=== PATIENT | male | born 1995 | race Caucasian/White ===

== ENCOUNTER 2018-02-22 10:42 | Inpatient (IN) | payer MEDICAID, OTHER ==
[~2018-02-22] VITALS: Ht 190.5 cm; Wt 90.4 kg
[~2018-02-22 10:42] MED LIST: AMOX500C2 PO; TETR250C3 PO
[2018-02-22] MEDS ORDERED: CLIN300C11 PO (11:32)
[2018-02-22] MEDS ORDERED: fentaNYL INJECTION 100 MCG/2 ML AMP ONE ×2 (11:43→14:22)
[2018-02-22] MEDS ORDERED: NS IV 1000 ML 1,000 ML ONE ×2 (11:43→14:20)
[2018-02-22] MEDS ORDERED: DEXAMETHASONE 10 MG/ML (DECADRON) 1 ML VIAL ONE (11:44)
[2018-02-22] MEDS ORDERED: NS 1000 ML IV BAG IV ONE (12:00)
[2018-02-22] MEDS ORDERED: fentaNYL INJECTION 100 MCG/2 ML AMP IVP ONE (12:00)
[2018-02-22] MEDS ORDERED: DEXAMETHASONE PF 10 MG/ML (DECADRON) VIAL IV ONE (12:00)
[2018-02-22] MEDS ORDERED: AMPICILLIN/SULBACTAM INJECTION 3 GM in NS (IVPB) 100 ML IV ONE (12:00)
--- NOTE | 2018-02-22 12:13 | ED EENT ---
History of Present Illness General Chief Complaint: Oral/Throat Problems Stated Complaint: SORE THROAT,DISCHARGED FROM ANOTHER FACILITY YEST Nursing Triage Note: PT AMBULATES TO ROOM 9 PT STATES HAS PERITONSILAR ABCESS L SIDE, PT WAS SENT HOME YESTERDAY FROM [facility]. CONT TO HAVE SORE THROAT Source: patient, family Exam Limitations: no limitations History of Present Illness Date Seen by Provider: February 22, 2018 Time Seen by Provider: 12:05 Initial Comments This 22-year-old white male presents with a left peritonsillar abscess. Patient developed the abscess over the last several days and was hospitalized while he was working out of town in [place], [place]. Patient received 20 mg Decadron and 3 g of Unasyn IV. There was interval improvement until he was discharged yesterday afternoon and placed on clindamycin 300 mg every 8 hours. The patient's symptoms have progressed since his discharge. He is able to handle his secretions. He has no difficulty with his airway. Allergies and Home Medications Allergies Coded Allergies: No Known Drug Allergies (Unverified , 06/05/10) Patient Home Medication List Home Medication List Reviewed: Yes Review of Systems Constitutional: No chills, No fever Eyes: Denies Blurred Vision Ears: Denies Dizziness Nose: denies congestion Mouth: swelling Throat: swelling (of the oropharynx on the left); denies muffled; painful swallowing; denies difficulty with fluids Respiratory: No cough Cardiovascular: No chest pain Gastrointestinal: No abdominal pain, No diarrhea, No nausea, No vomiting Musculoskeletal: No back pain Skin: no symptoms reported Past Eovkjeg-Nrsnjo-Keteqa Hx Past Med/Social Hx: Reviewed Nursing Past Med/Soc Hx Patient Social History Alcohol Use: Denies Use Recreational Drug Use: No Smoking Status: Never a Smoker Recent Foreign Travel: No Contact w/Someone Who Travel: No Recent Infectious Disease Expo: No Recent Hopitalizations: Yes (peritonsilar abcess yesterday) Physical Abuse: No Sexual Abuse: No Past Medical History Surgeries: No Nursing Suicide Risk Score: 0 Physical Exam Vital Signs Vital Signs - First Documented 02/22/18 11:00 Temp 97.7 Pulse 88 Resp 18 B/P (MAP) 130/64 (86) Pulse Ox 99 General Appearance: WD/WN, mild distress Eyes: bilateral eye normal inspection Ears: bilateral ear auricle normal Nose: normal inspection Mouth/Throat: tonsillar swelling (there is a left peritonsillar abscess present.) Neck: non-tender, full range of motion, supple Cardiovascular: regular rate, rhythm Respiratory: chest non-tender, lungs clear, normal breath sounds, no respiratory distress Gastrointestinal: normal bowel sounds, non tender, soft 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, no motor/sensory deficits, alert, normal mood/affect Skin: normal color, warm/dry Progress/Results/Core Measures Results/Orders Lab Results Laboratory Tests Test 02/22/18 11:27 Range/Units White Blood Count 11.0 4.3-11.0 10^3/uL Red Blood Count 5.10 4.35-5.85 10^6/uL Hemoglobin 15.2 13.3-17.7 G/DL Hematocrit 45 40-54 % Mean Corpuscular Volume 89 80-99 FL Mean Corpuscular Hemoglobin 30 25-34 PG Mean Corpuscular Hemoglobin Concent 34 32-36 G/DL Red Cell Distribution Width 12.9 10.0-14.5 % Platelet Count 254 130-400 10^3/uL Mean Platelet Volume 10.9 H 7.4-10.4 FL Neutrophils (%) (Auto) 73 42-75 % Lymphocytes (%) (Auto) 14 12-44 % Monocytes (%) (Auto) 12 0-12 % Eosinophils (%) (Auto) 1 0-10 % Basophils (%) (Auto) 1 0-10 % Neutrophils # (Auto) 8.1 H 1.8-7.8 X 10^3 Lymphocytes # (Auto) 1.5 1.0-4.0 X 10^3 Monocytes # (Auto) 1.4 H 0.0-1.0 X 10^3 Eosinophils # (Auto) 0.1 0.0-0.3 10^3/uL Basophils # (Auto) 0.1 0.0-0.1 10^3/uL Sodium Level 141 135-145 MMOL/L Potassium Level 4.2 3.6-5.0 MMOL/L Chloride Level 104 98-107 MMOL/L Carbon Dioxide Level 26 21-32 MMOL/L Anion Gap 11 5-14 MMOL/L Blood Urea Nitrogen 14 7-18 MG/DL Creatinine 0.90 0.60-1.30 MG/DL Estimat Glomerular Filtration Rate > 60 BUN/Creatinine Ratio 16 Glucose Level 87 70-105 MG/DL Calcium Level 9.8 8.5-10.1 MG/DL Total Bilirubin 0.7 0.1-1.0 MG/DL Aspartate Amino Transf (AST/SGOT) 50 H 5-34 U/L Alanine Aminotransferase (ALT/SGPT) 78 H 0-55 U/L Alkaline Phosphatase 93 40-136 U/L Total Protein 8.1 6.4-8.2 GM/DL Albumin 4.5 3.2-4.5 GM/DL My Orders Orders - DEIDRE ALDRIDGE MD Fentanyl Injection (Sublimaze Injection (02/22/18 11:43) Ns Iv 1000 Ml (Sodium Chloride 0.9%) (02/22/18 11:43) Dexamethasone Injection (Decadron Inject (02/22/18 11:44) Ns Iv 1000 Ml (Sodium Chloride 0.9%) (02/22/18 12:00) Ampicillin/Sulbactam Injection (Unasyn 3 (02/22/18 12:00) Fentanyl Injection (Sublimaze Injection (02/22/18 12:00) Dexamethasone Pf Injection (Decadron Pf (02/22/18 12:00) Cbc With Automated Diff (02/22/18 11:58) Comprehensive Metabolic Panel (02/22/18 11:58) Blood Culture (02/22/18 11:58) Lactic Acid Analyzer (02/22/18 11:58) Lidocaine/Epi 2% 1:100,000 (Xylocaine/Ep (02/22/18 12:32) Medications Given in ED Current Medications Medications Dose Ordered Sig/Lenore Route Start Time Stop Time Status Last Admin Dose Admin Ampicillin Sodium/ Sulbactam Sodium 3 gm/Sodium Chloride 100 ml @ 200 mls/hr ONCE ONCE IV 02/22/18 12:00 02/22/18 12:29 DC 02/22/18 11:58 200 MLS/HR Dexamethasone Sodium Phosphate 10 mg ONCE ONCE IV 02/22/18 12:00 02/22/18 12:01 DC 02/22/18 11:57 10 MG Fentanyl Citrate 75 mcg ONCE ONCE IVP 02/22/18 12:00 02/22/18 12:01 DC 02/22/18 11:58 75 MCG Sodium Chloride 1,000 ml ONCE ONCE IV 02/22/18 12:00 02/22/18 12:01 DC 02/22/18 11:57 1,000 ML Vital Signs/I&O 02/22/18 11:00 Temp 97.7 Pulse 88 Resp 18 B/P (MAP) 130/64 (86) Pulse Ox 99 Blood Pressure Mean: 86 Progress Progress Note : Time: 12:08 Progress Note I mistakenly call Dr. Woods. He had Gigi Guzman call me. She was kind enough to come to the emergency department to evaluate the patient. I gave the patient 10 mg of Decadron IV and 3 g of Unasyn IV. Patient received 75 g of fentanyl IV and a liter of normal saline. And the Thomas presented to evaluate and care for the patient. She was able to drain the left peritonsillar abscess. Patient was admitted. Departure Communication (Admissions) Time/Spoke to Admitting Phy: 13:12 Dr. Woods. Giig Guzman. Impression Primary Impression: Peritonsillar abscess Disposition: ADMITTED INPATIENT Condition: Improved Admissions Decision to Admit Reason: Admit from ER (General) Decision to Admit/Date: February 22, 2018 Time/Decision to Admit Time: 13:13 Departure-Patient Inst. Referrals: NO,LOCAL PHYSICIAN (PCP/Family) Primary Care Physician DEIDRE ALDRIDGE MD February 22, 2018 12:13
[2018-02-22 12:14] LABS: BASOPHILS # (AUTO) 0.1 10^3/uL (0.0-0.1); BASOPHILS % (AUTO) 1 % (0-10); EOSINOPHILS # (AUTO) 0.1 10^3/uL (0.0-0.3); EOSINOPHILS % (AUTO) 1 % (0-10); HEMATOCRIT 45 % (40-54); HEMOGLOBIN 15.2 G/DL (13.3-17.7); LYMPHOCYTES # (AUTO) 1.5 X 10^3 (1.0-4.0); LYMPHOCYTES % (AUTO) 14 % (12-44); MEAN CORPUSCULAR HEMOGLOBIN 30 PG (25-34); MEAN CORPUSCULAR HGB CONC 34 G/DL (32-36); MEAN CORPUSCULAR VOLUME 89 FL (80-99); MEAN PLATELET VOLUME 10.9 FL (7.4-10.4); MONOCYTES # (AUTO) 1.4 X 10^3 (0.0-1.0); MONOCYTES % (AUTO) 12 % (0-12); NEUTROPHILS # (AUTO) 8.1 X 10^3 (1.8-7.8); NEUTROPHILS % (AUTO) 73 % (42-75); PLATELET COUNT 254 10^3/uL (130-400); RED CELL DISTRIBUTION WIDTH 12.9 % (10.0-14.5)
[2018-02-22 12:26] LABS: ALANINE AMINOTRANSFERASE 78 U/L (0-55); ALBUMIN 4.5 GM/DL (3.2-4.5); ALKALINE PHOSPHATASE 93 U/L (40-136); BILIRUBIN,TOTAL 0.7 MG/DL (0.1-1.0); BUN/CREATININE RATIO 16; CALCIUM 9.8 MG/DL (8.5-10.1); CARBON DIOXIDE 26 MMOL/L (21-32); CHLORIDE 104 MMOL/L (98-107); GFR ESTIMATED > 60; GLUCOSE 87 MG/DL (70-105); POTASSIUM 4.2 MMOL/L (3.6-5.0); SODIUM 141 MMOL/L (135-145); TOTAL PROTEIN 8.1 GM/DL (6.4-8.2)
[2018-02-22] MEDS ORDERED: LIDOCAINE/EPI 2% 1:100,00 (XYLOCAINE) 20 ML VIAL ONE (12:32)
--- NOTE | 2018-02-22 13:39 | Consultation ---
History of Present Illness History of Present Illness Patient Consulted On(paulie/time) 02/22/18 13:31 Date Seen by Provider: February 22, 2018 Time Seen by Provider: 12:30 Reason for Visit: Left Peritonsillar Abcess History of Present Illness Sore throat started Saturday this week then continued to worsen till started having trouble swallowing on . Was out of area went to ER there and was treated with Decadron and Unasyn, pt did not want admitted there and came back home Arrived to ER today with c/o Left side sore throat and peritonsillar abcess. Allergies and Home Medications Allergies Coded Allergies: No Known Drug Allergies (Unverified , 06/05/10) Patient Home Medication List Home Medication List Reviewed: Yes Past Ngyftbt-Jhcgfh-Dokdcx Hx Past Med/Social Hx: Reviewed Nursing Past Med/Soc Hx Patient Social History Alcohol Use: Denies Use Recreational Drug Use: No Smoking Status: Never a Smoker Recent Foreign Travel: No Contact w/Someone Who Travel: No Recent Infectious Disease Expo: No Recent Hopitalizations: Yes (peritonsilar abcess yesterday) Physical Abuse: No Sexual Abuse: No Past Medical History Surgeries: No Nursing Suicide Risk Score: 0 Review of Systems-General EENTM: throat pain, throat swelling, other (Left side peritonsillar abcess ) Physical Exam-General Problems Physical Exam Vital Signs Vital Signs - First Documented 02/22/18 11:00 Temp 97.7 Pulse 88 Resp 18 B/P (MAP) 130/64 (86) Pulse Ox 99 Capillary Refill : Less Than 3 Seconds HEENT: other (pharynx with left side peritonsillar abcess uvula shifted to right, c/o pain with swallowing and ear pain, unable to open mouth well ) Assessment/Plan Assessment/Plan Admission Diagnosis/Plan Diagnosis: Left Peritonsillar abscess Plan: Informed verbal consent was given by pt, mother at bedside Peritonsillar abscess was drained with protected 11 blade after hurricane spray and 2%lidocaine with epi was injected into Left peritonsillar area 5-10ml of purulent drainage was noted and the area was then opened with curved eleonora clamp Pt tolerated this well and did feel little relief Pt gargled with 1/2 water and hydrogen peroxide Pt tolerated procedure well and will be admitted for IV antibiotics and steroids Dr Peggy mcintyre round tomorrow morning Admission Status: Observation KHANH ALVAREZ [facility] February 22, 2018 13:39
[2018-02-22 16:06] VITALS: BP 123/72
[2018-02-22] MEDS ORDERED: fentaNYL INJECTION 100 MCG/2 ML AMP IV PRN (16:45)
[2018-02-22] MEDS: DEXAMETHASONE 10 MG/ML (DECADRON) 1 ML VIAL IV SCH (17:11)
[2018-02-22] MEDS: CEFUROXIME 1.5 GM/NS 50 ML IVPB IV SCH ×2 (17:13)
[2018-02-22] MEDS: NS IV 1000 ML 1,000 ML IV SCH (18:26)
[2018-02-22 20:00] VITALS: BP 118/67
[2018-02-22] MEDS ORDERED: NS IV 500 ML 500 ML IV SCH (21:15)
[2018-02-23] VITALS: BP 109/55
[2018-02-23] MEDS: CEFUROXIME 1.5 GM/NS 50 ML IVPB IV SCH ×4 (00:52→08:26)
[2018-02-23] MEDS: DEXAMETHASONE 10 MG/ML (DECADRON) 1 ML VIAL IV SCH ×2 (00:52→05:31)
[2018-02-23] MEDS: NS IV 1000 ML 1,000 ML IV SCH ×3 (03:15→23:10)
[2018-02-23 04:00] VITALS: BP 123/71
[2018-02-23 05:13] LABS: BASOPHILS % (AUTO) 0 % (0-10); EOSINOPHILS % (AUTO) 0 % (0-10); HEMATOCRIT 42 % (40-54); HEMOGLOBIN 14.2 G/DL (13.3-17.7); LYMPHOCYTES # (AUTO) 0.8 X 10^3 (1.0-4.0); LYMPHOCYTES % (AUTO) 7 % (12-44); MEAN CORPUSCULAR HEMOGLOBIN 30 PG (25-34); MEAN CORPUSCULAR HGB CONC 34 G/DL (32-36); MEAN CORPUSCULAR VOLUME 88 FL (80-99); MEAN PLATELET VOLUME 10.5 FL (7.4-10.4); MONOCYTES # (AUTO) 0.4 X 10^3 (0.0-1.0); MONOCYTES % (AUTO) 3 % (0-12); NEUTROPHILS # (AUTO) 9.9 X 10^3 (1.8-7.8); NEUTROPHILS % (AUTO) 90 % (42-75); PLATELET COUNT 279 10^3/uL (130-400); RED BLOOD COUNT 4.74 10^6/uL (4.35-5.85); RED CELL DISTRIBUTION WIDTH 12.6 % (10.0-14.5)
[2018-02-23 05:27] LABS: ALANINE AMINOTRANSFERASE 56 U/L (0-55); ALBUMIN 3.9 GM/DL (3.2-4.5); ALKALINE PHOSPHATASE 84 U/L (40-136); BILIRUBIN,TOTAL 0.5 MG/DL (0.1-1.0); BUN/CREATININE RATIO 14; CARBON DIOXIDE 20 MMOL/L (21-32); CHLORIDE 106 MMOL/L (98-107); CREATININE SERUM 0.71 MG/DL (0.60-1.30); GFR ESTIMATED > 60; GLUCOSE 118 MG/DL (70-105); POTASSIUM 4.5 MMOL/L (3.6-5.0); SODIUM 137 MMOL/L (135-145); TOTAL PROTEIN 6.9 GM/DL (6.4-8.2)
--- NOTE | 2018-02-23 07:16 | Progress Note-Standard ---
Standard Progress Note Progress Notes/Assess & Plan Date Seen by Provider: February 23, 2018 Time Seen by Provider: 06:30 Progress/Assessment & Plan ENT-Peggy lucero doing much better able to eat and drink-pain much less [id number] acid mildly elevated-may relate to his working while sick more than from illness alone hungry this am OP=minimal swelling left peritonsillar r egion left gfmr-sys-kdccug Lab-lever enzymes mildly elevated-will check a mono spot would rec 24 more hours of IV antibiotics/steroids then home on ceftin and pred taper prob saturday am patty baroneck a lactic acid around noon and mono spot at that time as well Final Diagnosis left peritonsillar abscess Focused Exam Lactate Level 02/22/18 13:16: Lactic Acid Level 0.88 02/22/18 19:23: Lactic Acid Level 2.17*H 02/22/18 21:23: Lactic Acid Level 2.21*H ABRAHAN LANGFORD MD February 23, 2018 7:16 am
[2018-02-23 08:22] VITALS: BP 118/67
[2018-02-23 12:30] VITALS: BP 131/71
[2018-02-23] MEDS: DEXAMETHASONE 4 MG/ML SDV (DECADRON) IV SCH ×2 (15:36→21:46)
[2018-02-23 16:59] VITALS: BP 129/63
[2018-02-24 00:33] VITALS: BP 125/62
[2018-02-24] MEDS: DEXAMETHASONE 4 MG/ML SDV (DECADRON) IV SCH (05:22)
--- NOTE | 2018-02-24 06:22 | Progress Note-Standard ---
Standard Progress Note Progress Notes/Assess & Plan Date Seen by Provider: February 24, 2018 Time Seen by Provider: 06:00 Progress/Assessment & Plan Price patietn doing much better able to eat and drink-pain much less zicz6jn acid mildly elevated-may relate to his working while sick more than from illness alone hungry this am OP=minimal swelling left peritonsillar r egion left zbuy-oue-xvyutk Lab-lever enzymes mildly elevated-will check a mono spot would rec 24 more hours of IV antibiotics/steroids then home on ceftin and pred taper prob saturday am patty lrecheck a lactic acid around noon and mono spot at that time as well Price Doing well-demetrius diet minimal pain lactic acid normal mono negative op-minimal swelling on left no trismus will discharge af ter breakfast home on antibiotics and steroids-prescriptions in chart rtc-2 weeks may resume work when he feels up to it call if symptoms return Focused Exam Lactate Level 02/22/18 19:23: Lactic Acid Level 2.17*H 02/22/18 21:23: Lactic Acid Level 2.21*H 02/23/18 12:00: Lactic Acid Level 1.77 ABRAHAN LANGFORD MD February 24, 2018 6:21 am
[2018-02-24] MEDS ORDERED: CEFU250T80 PO (07:56)
[2018-02-24] MEDS ORDERED: PRD20T PO (08:04)
[2018-02-24 08:45] VITALS: BP 128/62
--- OUTSIDE RECORDS SUMMARY | 2018-02-24 13:27 | XMS REPORT | Continuity of Care Document ---
Author Author [facility] Organization [facility] Address Unknown Phone Unavailable Allergies Active Description Code Type Severity Reaction Onset Reported/Identified Relationship to Patient Clinical Status Yes No Known Drug Allergies [id number] Drug Allergy Unknown N/A 06/05/2010 Medications There is no data. Problems Date Dx Coded Attending Type Code Diagnosis Diagnosed By 06/05/2010 Ot 816.01 06/05/2010 Ot 959.5 06/05/2010 Ot E000.8 06/05/2010 Ot E007.0 06/05/2010 Ot E849.4 06/05/2010 Ot E928.9 03/11/2011 Ot 388.70 12/06/2011 Ot 815.00 12/06/2011 Ot 959.4 12/06/2011 Ot E000.8 12/06/2011 Ot E007.3 12/06/2011 Ot E849.4 12/06/2011 Ot E928.9 06/23/2012 Ot 845.00 06/23/2012 Ot 959.7 06/23/2012 Ot E000.8 06/23/2012 Ot E007.0 06/23/2012 Ot E849.4 06/23/2012 Ot E927.0 07/28/2012 Ot 850.9 07/28/2012 Ot 959.01 07/28/2012 Ot E000.8 07/28/2012 Ot E007.0 07/28/2012 Ot E849.4 07/28/2012 Ot E886.0 01/17/2015 Ot 782.1 01/17/2015 Ot 729.5 01/17/2015 Ot 786.50 01/17/2015 Ot V17.49 01/17/2015 Ot 782.1 01/17/2015 Ot 729.5 01/17/2015 Ot 786.50 01/17/2015 Ot V17.49 02/09/2015 VINH AMADOR, IMTIAZ Strange Ot 724.1 Procedures There is no data. Results Test Result Range Complete blood count (CBC) with automated white blood cell (WBC) differential - 02/22/18 11:27 Blood leukocytes automated count (number/volume) 11.0 10*3/uL 4.3-11.0 Blood erythrocytes automated count (number/volume) 5.10 10*6/uL 4.35-5.85 Venous blood hemoglobin measurement (mass/volume) 15.2 g/dL 13.3-17.7 Blood hematocrit (volume fraction) 45 % 40-54 Automated erythrocyte mean corpuscular volume 89 [foz_us] 80-99 Automated erythrocyte mean corpuscular hemoglobin (mass per erythrocyte) 30 pg 25-34 Automated erythrocyte mean corpuscular hemoglobin concentration measurement ( mass/volume) 34 g/dL 32-36 Automated erythrocyte distribution width ratio 12.9 % 10.0-14.5 Automated blood platelet count (count/volume) 254 10*3/uL 130-400 Automated blood platelet mean volume measurement 10.9 [foz_us] 7.4-10.4 Automated blood neutrophils/100 leukocytes 73 % 42-75 Automated blood lymphocytes/100 leukocytes 14 % 12-44 Blood monocytes/100 leukocytes 12 % 0-12 Automated blood eosinophils/100 leukocytes 1 % 0-10 Automated blood basophils/100 leukocytes 1 % 0-10 Blood neutrophils automated count (number/volume) 8.1 10*3 1.8-7.8 Blood lymphocytes automated count (number/volume) 1.5 10*3 1.0-4.0 Blood monocytes automated count (number/volume) 1.4 10*3 0.0-1.0 Automated eosinophil count 0.1 10*3/uL 0.0-0.3 Automated blood basophil count (count/volume) 0.1 10*3/uL 0.0-0.1 Comprehensive metabolic panel - 02/22/18 11:27 Serum or plasma sodium measurement (moles/volume) 141 mmol/L 135-145 Serum or plasma potassium measurement (moles/volume) 4.2 mmol/L 3.6-5.0 Serum or plasma chloride measurement (moles/volume) 104 mmol/L 98-107 Carbon dioxide 26 mmol/L 21-32 Serum or plasma anion gap determination (moles/volume) 11 mmol/L 5-14 Serum or plasma urea nitrogen measurement (mass/volume) 14 mg/dL 7-18 Serum or plasma creatinine measurement (mass/volume) 0.90 mg/dL 0.60-1.30 Serum or plasma urea nitrogen/creatinine mass ratio 16 NRG Serum or plasma creatinine measurement with calculation of estimated glomerular filtration rate > NRG Serum or plasma glucose measurement (mass/volume) 87 mg/dL 70-105 Serum or plasma calcium measurement (mass/volume) 9.8 mg/dL 8.5-10.1 Serum or plasma total bilirubin measurement (mass/volume) 0.7 mg/dL 0.1-1.0 Serum or plasma alkaline phosphatase measurement (enzymatic activity/volume) 93 U/L 40-136 Serum or plasma aspartate aminotransferase measurement (enzymatic activity/ volume) 50 U/L 5-34 Serum or plasma alanine aminotransferase measurement (enzymatic activity/volume ) 78 U/L 0-55 Serum or plasma protein measurement (mass/volume) 8.1 g/dL 6.4-8.2 Serum or plasma albumin measurement (mass/volume) 4.5 g/dL 3.2-4.5 Blood lactic acid measurement (moles/volume) - 02/22/18 13:16 Blood lactic acid measurement (moles/volume) 0.88 mmol/L 0.50-2.00 Encounters ACCT No. Visit Date/Time Discharge Status Pt. Type Provider Facility Loc./Unit Complaint [id number] 07/30/2015 12:00:00 07/30/2015 23:59:59 CLS Outpatient MARTIN GARCIA APRN [facility] LUCIA [id number] 01/17/2015 15:59:00 01/17/2015 23:59:59 CLS Outpatient IMTIAZ JUSTICE MD [facility] RAD [id number] 02/22/2018 12:15:00 Document Registration [id number] 01/17/2015 15:59:00 Document Registration [id number] 01/17/2015 15:59:00 Document Registration [id number] 07/28/2012 18:22:00 Document Registration [id number] 04/11/2011 15:47:00 Document Registration [id number] 03/11/2011 00:18:00 Document Registration [id number] 06/05/2010 21:23:00 Document Registration [id number] 04/14/2010 13:46:00 Document Registration [email or web address] 01/17/2015 16:00:07 ACT Document Registration
--- OUTSIDE RECORDS SUMMARY | 2018-02-24 14:06 | XMS REPORT | Continuity of Care Document ---
Author Author [facility] Organization [facility] Address Unknown Phone Unavailable Allergies Active Description Code Type Severity Reaction Onset Reported/Identified Relationship to Patient Clinical Status Yes No Known Drug Allergies [id number] Drug Allergy Unknown N/A 06/05/2010 Medications There [...] Status Pt. Type Provider Facility Loc./Unit Complaint [id number] 07/30/2015 12:00:00 07/30/2015 23:59:59 CLS Outpatient MARTIN GARCIA APRN [facility] LUCIA [id number] 01/17/2015 15:59:00 01/17/2015 23:59:59 CLS Outpatient IMTIAZ JUSTICE MD [facility] RAD [id number] 02/22/2018 12:15:00 Document Registration [id number] 01/17/2015 15:59:00 Document Registration [id number] 01/17/2015 15:59:00 Document Registration [id number] 07/28/2012 18:22:00 Document Registration [id number] 04/11/2011 15:47:00 Document Registration [id number] 03/11/2011 00:18:00 Document Registration [id number] 06/05/2010 21:23:00 Document Registration [id number] 04/14/2010 13:46:00 Document Registration [email or web address] 01/17/2015 16:00:07 ACT Document Registration
== END 2018-02-24 10:45 | disposition home or self-care (01) | DRG 134 ==
LOC: EDUNIT# 10:42 → ER 10:44 → 4TH 13:40
PROVIDERS: ADMIT Otolaryngology Otolaryngology/Facial Plastic Surgery; ATTEND Otolaryngology Otolaryngology/Facial Plastic Surgery
PROC: 0C9P0ZZ Drainage of Tonsils, Open Approach (ICD-10-PCS; principal; 2018-02-22)
DX: J36 Peritonsillar abscess (principal); R74.0 Nonspecific elevation of levels of transaminase and lactic acid dehydrogenase [LDH]; R74.8 Abnormal levels of other serum enzymes
CPT/HCPCS: 36415; 42700; 80053; 83605; 85025; 86308; 87040; 96365; 96375

== ENCOUNTER 2019-09-16 20:36 | Emergency (ER) | payer SELFPAY ==
[~2019-09-16] VITALS: Ht 190.5 cm; Wt 90.9 kg
[~2019-09-16 20:36] MED LIST changes: +CEFU250T80 PO; +CLIN300C11 PO; +PRD20T PO
--- NOTE | 2019-09-16 20:49 | ED EENT ---
History of Present Illness General Chief Complaint: Oral/Throat Problems Stated Complaint: FEVER,SORE THROAT Source: patient Exam Limitations: no limitations History of Present Illness Date Seen by Provider: Sep 16, 2019 Time Seen by Provider: 20:48 Initial Comments To ER with reports of fever and sore throat, fever began Saturday, sore throat has progressed since then. Girlfriend is ill with similar symptoms. Timing/Duration: abrupt Severity: moderate Location: throat Prearrival Treatment: no prearrival treatment Associated Symptoms: sore throat Allergies and Home Medications Allergies Coded Allergies: No Known Drug Allergies (Unverified , 02/22/18) Home Medications Cefuroxime Axetil 250 Mg Tablet, 250 MG PO BID Prescribed by: BENOIT SCHWARTZ on 02/24/18 0756 Cefuroxime Axetil 250 Mg Tablet, 250 MG PO BID Prescribed by: ARTUR FAN on 09/16/192129 Prednisone 20 Mg Tab, 20 MG PO DAILY TAKE 3 TABLETS BY MOUTH DAILY X 3 DAYS THEN TAKE 2 TABLETS BY MOUTH DAILY X 3 DAYS THEN TAKE 1 TABLET BY MOUTH DAILY X 3 DAYS AND STOP Prescribed by: KASSIDY BLAKE on 02/24/18 0804 Prednisone 20 Mg Tab, 40 MG PO DAILY Prescribed by: ARTUR FAN on 09/16/192129 Patient Home Medication List Home Medication List Reviewed: Yes Review of Systems Review of Systems Constitutional: see HPI Eyes: No Symptoms Reported Ears: No Symptoms Reported Nose: no symptoms reported Mouth: no symptoms reported Throat: no symptoms reported Respiratory: no symptoms reported Cardiovascular: no symptoms reported Musculoskeletal: no symptoms reported Skin: no symptoms reported Neurological: No Symptoms Reported Hematologic/Lymphatic: No Symptoms Reported Immunological/Allergic: no symptoms reported Past Gycxkcc-Thlfgm-Ujaysq Hx Patient Social History Alcohol Beverage of Choice: Beer Recent Foreign Travel: No Contact w/Someone Who Travel: No Recent Hopitalizations: Yes (peritonsilar abcess yesterday) Immunizations Up To Date PED Vaccines UTD: No Seasonal Allergies Seasonal Allergies: No Past Medical History Surgeries: No Respiratory: No Currently Using CPAP: No Currently Using BIPAP: No Cardiac: No Neurological: No Sexually Transmitted Disease: No HIV/AIDS: No Genitourinary: No Gastrointestinal: No Musculoskeletal: No Endocrine: No HEENT: Yes (left peritosillar abscess) Loss of Vision: Denies Hearing Impairment: Denies Cancer: No Psychosocial: No Integumentary: No Blood Disorders: No Adverse Reaction/Blood Tranf: Yes (at the age of 5 ) Physical Exam Vital Signs Vital Signs - First Documented 09/16/19 20:41 Temp 39.3 Pulse 77 Resp 16 B/P (MAP) 136/76 (96) O2 Delivery Room Air Height, Weight, BMI Height: 6'3.00" Weight: 199lbs. 4.0oz. 90.614337qy; 24.9 BMI Method:Stated General Appearance: WD/WN, no apparent distress Eyes: bilateral eye normal inspection, bilateral eye PERRL, bilateral eye EOMI Ears: bilateral ear auricle normal, bilateral ear canal normal, bilateral ear TM normal Mouth/Throat: tonsillar swelling; No trismus, No uvula swelling; voice changes Neck: No lymphadenopathy (R), No lymphadenopathy (L) Cardiovascular: regular rate, rhythm, no murmur Respiratory: normal breath sounds, no respiratory distress, no accessory muscle use Gastrointestinal: normal bowel sounds, non tender Neurologic/Psychiatric: alert, normal mood/affect, oriented x 3 Skin: normal color, warm/dry Progress/Results/Core Measures Results/Orders Lab Results Laboratory Tests Test 09/16/19 20:42 09/16/19 20:43 Range/Units Group A Streptococcus Screen NEGATIVE NEGATIVE White Blood Count 6.9 4.3-11.0 10^3/uL Red Blood Count 4.57 4.35-5.85 10^6/uL Hemoglobin 13.9 13.3-17.7 G/DL Hematocrit 41 40-54 % Mean Corpuscular Volume 89 80-99 FL Mean Corpuscular Hemoglobin 30 25-34 PG Mean Corpuscular Hemoglobin Concent 34 32-36 G/DL Red Cell Distribution Width 11.9 10.0-14.5 % Platelet Count 158 130-400 10^3/uL Mean Platelet Volume 10.7 H 7.4-10.4 FL Neutrophils (%) (Auto) 70 42-75 % Lymphocytes (%) (Auto) 16 12-44 % Monocytes (%) (Auto) 14 H 0-12 % Eosinophils (%) (Auto) 0 0-10 % Basophils (%) (Auto) 0 0-10 % Neutrophils # (Auto) 4.8 1.8-7.8 X 10^3 Lymphocytes # (Auto) 1.1 1.0-4.0 X 10^3 Monocytes # (Auto) 1.0 0.0-1.0 X 10^3 Eosinophils # (Auto) 0.0 0.0-0.3 10^3/uL Basophils # (Auto) 0.0 0.0-0.1 10^3/uL Sodium Level 143 135-145 MMOL/L Potassium Level 3.8 3.6-5.0 MMOL/L Chloride Level 104 98-107 MMOL/L Carbon Dioxide Level 26 21-32 MMOL/L Anion Gap 13 5-14 MMOL/L Blood Urea Nitrogen 13 7-18 MG/DL Creatinine 1.13 0.60-1.30 MG/DL Estimat Glomerular Filtration Rate > 60 BUN/Creatinine Ratio 12 Glucose Level 105 70-105 MG/DL Calcium Level 9.3 8.5-10.1 MG/DL Corrected Calcium 8.5-10.1 MG/DL Total Bilirubin 0.8 0.1-1.0 MG/DL Aspartate Amino Transf (AST/SGOT) 14 5-34 U/L Alanine Aminotransferase (ALT/SGPT) 17 0-55 U/L Alkaline Phosphatase 63 40-136 U/L Total Protein 7.6 6.4-8.2 GM/DL Albumin 4.8 H 3.2-4.5 GM/DL Monoscreen NEGATIVE NEGATIVE Micro Results Microbiology 09/16/19 Influenza Types A,B Antigen (JOSH) - Final, Complete My Orders Orders - ARTUR FAN APRN Cbc With Automated Diff (09/16/19 20:39) Comprehensive Metabolic Panel (09/16/19 20:39) Ed Iv/Invasive Line Start (09/16/19 20:39) Rapid Strep A Screen (09/16/19 20:39) Monotest (09/16/19 20:39) Influenza A And B Antigens (09/16/19 20:39) Ct Neck (Soft Tissue) W (09/16/19 20:46) Acetaminophen Tablet (Tylenol Tablet) (09/16/19 21:00) Ibuprofen Tablet (Motrin Tablet) (09/16/19 21:00) Ns Iv 1000 Ml (Sodium Chloride 0.9%) (09/16/19 21:00) Cefuroxime Injection (Zinacef Injection) (09/16/19 21:00) Iohexol Injection (Omnipaque 350 Mg/Ml 1 (09/16/19 21:00) Received Contrast (Hold Metformin- Contr (09/16/19 21:00) Ns (Ivpb) (Sodium Chloride 0.9% Ivpb Bag (09/16/19 21:00) Ceftriaxone For Iv Use (Rocephin For I (09/16/19 20:52) Water (Sterile) For Injection (Sterile W (09/16/19 20:53) Dexamethasone Injection (Decadron Inject (09/16/19 21:15) Medications Given in ED Current Medications Medications Dose Ordered Sig/Lenore Route Start Time Stop Time Status Last Admin Dose Admin Acetaminophen 1,000 mg ONCE ONCE PO 09/16/19 21:00 09/16/19 21:01 DC 09/16/19 21:02 1,000 MG Cefuroxime Sodium 1500 mg/Sterile Water 15 ml @ 300 mls/hr ONCE ONCE IV 09/16/19 21:00 09/16/19 21:02 DC 09/16/19 21:29 300 MLS/HR Dexamethasone Sodium Phosphate 10 mg ONCE ONCE IV 09/16/19 21:15 09/16/19 21:16 DC 09/16/19 21:30 10 MG Ibuprofen 800 mg ONCE ONCE PO 09/16/19 21:00 09/16/19 21:01 DC 09/16/19 21:02 800 MG Iohexol 75 ml ONCE ONCE IV 09/16/19 21:00 09/16/19 21:01 DC 09/16/19 21:09 75 ML Sodium Chloride 100 ml ONCE ONCE IV 09/16/19 21:00 09/16/19 21:01 DC 09/16/19 21:09 80 ML Vital Signs/I&O 09/16/19 09/16/19 09/16/19 20:41 21:02 21:02 Temp 39.3 39.3 39.3 Pulse 77 Resp 16 B/P (MAP) 136/76 (96) O2 Delivery Room Air Diagnostic Imaging Diagonstic Imaging: CT Comments NAME: BERNARDINO SILVA MED REC#: [id number] PT STATUS: REG ER : 1995 PHYSICIAN: ARTUR FAN [employer] ADMIT DATE: 09/16/19/ER Draft POSDate of Exam:09/16/19 CT NECK (SOFT TISSUE) W PROCEDURE: CT neck soft tissue with contrast. TECHNIQUE: Multiple contiguous axial images were obtained through the neck after the administration of contrast. Auto Exposure Controls were utilized during the CT exam to meet ALARA standards for radiation dose reduction. INDICATION: Fever. Sore throat. Previous abscess. COMPARISON: None. FINDINGS: Prominent palatine tonsils, right greater than left. No parapharyngeal edema or evidence of fluid collection. No lymphadenopathy. The pharyngeal and laryngeal soft tissues are symmetric bilaterally with no suspicious enhancement. Normal thyroid and major salivary glands. The floor of the mouth, tongue base and epiglottis are negative. No retropharyngeal edema or fluid. No acute osseous findings. Lung apices are clear. The cervical carotid and vertebral arteries are grossly patent. Skull base is intact. IMPRESSION: Mildly prominent palatine tonsils, right greater than left. No fluid collections suspicious for abscess. Dictated on workstation # [id number] Dict: 09/16/192129 Trans: 09/16/192135 [facility] [id number] Interpreted by: TAL ECHAVARRIA MD Electronically signed by: Departure Impression Primary Impression: Pharyngitis Qualified Codes: J02.9 - Acute pharyngitis, unspecified Disposition: HOME, SELF-CARE Condition: Stable Departure-Patient Inst. Decision time for Depature: 21:28 Referrals: NO,LOCAL PHYSICIAN (PCP/Family) Primary Care Physician Patient Instructions: Sore Throat in Adults Add. Discharge Instructions: 1. Continue with tylenol and motrin for pain and fever control. Drink plenty of fluids to stay hydrated. Return to ER for any concerns. See your doctor on Saturday for recheck. Cepacol lozenges (at [facility] or [facility]) can have a numbing effect and be helpful for controlling pain as well. All discharge instructions reviewed with patient and/or family. Voiced understanding. Scripts Prednisone (Prednisone) 20 Mg Tab 40 MG PO DAILY, #6 TAB 0 Refills Prov: ARTUR FAN APRN 09/16/19 Cefuroxime Axetil (Cefuroxime) 250 Mg Tablet 250 MG PO BID, #10 TAB Prov: ARTUR FAN APRN 09/16/19 Work/School Note: Work Release Form Date Seen in the Emergency Department: Sep 16, 2019 Return to Work: Sep 18, 2019 ARTUR FAN APRN Sep 16, 2019 20:49 POS
[2019-09-16] MEDS ORDERED: cefTRIAXone 1,000 MG IV (ROCEPHIN) VIAL ONE (20:52)
[2019-09-16] MEDS ORDERED: WATER (STERILE) FOR INJECTION 20 ML ONE (20:53)
[2019-09-16] MEDS ORDERED: IOHEXOL 350 MG/ML 100 ML (OMNIPAQUE 350) VIAL IV ONE (21:00)
[2019-09-16] MEDS ORDERED: IBUPROFEN 800 MG (MOTRIN) TAB PO ONE (21:00)
[2019-09-16] MEDS ORDERED: NS IV 1000 ML 1,000 ML IV SCH (21:00)
[2019-09-16] MEDS ORDERED: HOLD METFORMIN - RECEIVED CONTRAST 20 ML VIAL IV SCH (21:00)
[2019-09-16] MEDS ORDERED: CEFUROXIME INJECTION 1,500 MG in WATER (STERILE) FOR INJECTION 15 ML IV ONE (21:00)
[2019-09-16] MEDS ORDERED: ACETAMINOPHEN 500 MG TAB (TYLENOL) PO ONE (21:00)
[2019-09-16] MEDS ORDERED: NS 100 ML (IVPB) BAG IV ONE (21:00)
[2019-09-16 21:02] LABS: BASOPHILS % (AUTO) 0 % (0-10); EOSINOPHILS % (AUTO) 0 % (0-10); HEMATOCRIT 41 % (40-54); HEMOGLOBIN 13.9 G/DL (13.3-17.7); LYMPHOCYTES # (AUTO) 1.1 X 10^3 (1.0-4.0); LYMPHOCYTES % (AUTO) 16 % (12-44); MEAN CORPUSCULAR HEMOGLOBIN 30 PG (25-34); MEAN CORPUSCULAR HGB CONC 34 G/DL (32-36); MEAN CORPUSCULAR VOLUME 89 FL (80-99); MEAN PLATELET VOLUME 10.7 FL (7.4-10.4); MONOCYTES % (AUTO) 14 % (0-12); NEUTROPHILS # (AUTO) 4.8 X 10^3 (1.8-7.8); NEUTROPHILS % (AUTO) 70 % (42-75); PLATELET COUNT 158 10^3/uL (130-400); RED CELL DISTRIBUTION WIDTH 11.9 % (10.0-14.5); WHITE BLOOD COUNT 6.9 10^3/uL (4.3-11.0)
[2019-09-16 21:15] LABS: ALANINE AMINOTRANSFERASE 17 U/L (0-55); ALBUMIN 4.8 GM/DL (3.2-4.5); ALKALINE PHOSPHATASE 63 U/L (40-136); BILIRUBIN,TOTAL 0.8 MG/DL (0.1-1.0); BUN/CREATININE RATIO 12; CALCIUM 9.3 MG/DL (8.5-10.1); CARBON DIOXIDE 26 MMOL/L (21-32); CHLORIDE 104 MMOL/L (98-107); CREATININE SERUM 1.13 MG/DL (0.60-1.30); GFR ESTIMATED > 60; GLUCOSE 105 MG/DL (70-105); POTASSIUM 3.8 MMOL/L (3.6-5.0); SODIUM 143 MMOL/L (135-145); TOTAL PROTEIN 7.6 GM/DL (6.4-8.2)
[2019-09-16] MEDS ORDERED: DEXAMETHASONE 10 MG/ML (DECADRON) 1 ML VIAL IV ONE (21:15)
[2019-09-16] MEDS ORDERED: PRD20T PO (21:30)
[2019-09-16] MEDS ORDERED: CEFU250T80 PO (21:30)
--- NOTE | 2019-09-16 21:37 | Diagnostic Imaging Report ---
PROCEDURE: CT neck soft tissue with contrast. TECHNIQUE: Multiple contiguous axial images were obtained through the neck after the administration of contrast. Auto Exposure Controls were utilized during the CT exam to meet ALARA standards for radiation dose reduction. INDICATION: Fever. Sore throat. Previous abscess. COMPARISON: None. FINDINGS: Prominent palatine tonsils, right greater than left. No parapharyngeal edema or evidence of fluid collection. No lymphadenopathy. The pharyngeal and laryngeal soft tissues are symmetric bilaterally with no suspicious enhancement. Normal thyroid and major salivary glands. The floor of the mouth, tongue base and epiglottis are negative. No retropharyngeal edema or fluid. No acute osseous findings. Lung apices are clear. The cervical carotid and vertebral arteries are grossly patent. Skull base is intact. IMPRESSION: Mildly prominent palatine tonsils, right greater than left. No fluid collections suspicious for abscess. Dictated by: Dictated on workstation # [id number]
[2019-09-16 22:15] VITALS: BP 122/66
== END 2019-09-16 22:20 | disposition home or self-care (01) ==
LOC: EDUNIT# 20:36 → ER 20:38
DX: J02.9 Acute pharyngitis, unspecified (principal); Z79.52 Long term (current) use of systemic steroids
CPT/HCPCS: 36415; 70491; 80053; 85025; 86308; 87430; 87804; 96361; 96365; 96375